=== PATIENT | female | born 1965 | race Caucasian/White ===

== ENCOUNTER 2020-03-30 12:45 | Inpatient (IN) | payer OTHER ==
[~2020-03-30] VITALS: Ht 160 cm; Wt 61.2 kg
[~2020-03-30 12:45] MED LIST: EFFEXOR XR75 MG; NEURONTIN300 MG; SYNTHROID50 MCG
== END 2020-04-07 17:19 | disposition home or self-care (01) | DRG 741 ==
LOC: SURH 04-06 07:08 → O/R 04-06 07:08 → SURH 04-06 12:45 → SURG 04-06 20:29 → SURH 04-06 20:30
PROVIDERS: ADMIT Obstetrics & Gynecology Gynecologic Oncology; ATTEND Obstetrics & Gynecology Gynecologic Oncology
PROC: 0UT24ZZ Resection of Bilateral Ovaries, Percutaneous Endoscopic Approach (ICD-10-PCS; 2020-04-06)
PROC: 0UT74ZZ Resection of Bilateral Fallopian Tubes, Percutaneous Endoscopic Approach (ICD-10-PCS; 2020-04-06)
PROC: 07BC4ZZ Excision of Pelvis Lymphatic, Percutaneous Endoscopic Approach (ICD-10-PCS; 2020-04-06)
PROC: 0UT94ZZ Resection of Uterus, Percutaneous Endoscopic Approach (ICD-10-PCS; principal; 2020-04-06 16:45)
DX: C54.1 Malignant neoplasm of endometrium (principal)